=== PATIENT | female | born 1995 | race African-American/Black ===

== ENCOUNTER 2020-03-06 19:08 | Emergency (ER) | payer OTHER ==
[2020-03-06 19:17] VITALS: BP 131/79; PULSE 71; TEMP 97; BMI 30.5
[2020-03-06] MEDS ORDERED: KETOROLAC TROMETHAMINE 60 MG/2 ML VIAL IM ONE (20:16)
[2020-03-06] MEDS ORDERED: KETOROLAC TROMETHAMINE 60 MG/2 ML VIAL ONE (20:18)
== END 2020-03-06 20:11 | disposition home or self-care (01) ==
LOC: JERFT 19:08
PROC: 3E0233Z Introduction of Anti-inflammatory into Muscle, Percutaneous Approach (ICD-10-PCS; principal; 2020-03-06)
DX: S46.819A Strain of other muscles, fascia and tendons at shoulder and upper arm level, unspecified arm, initial encounter (principal); Z04.1 Encounter for examination and observation following transport accident
CPT/HCPCS: 99284-25

== ENCOUNTER 2020-03-07 16:40 | Emergency (ER) | payer OTHER ==
[2020-03-07 16:48] VITALS: BMI 30.5
[2020-03-07] MEDS ORDERED: CYCLOBENZAPRINE HCL 10 MG TABLET (FP) PO ONE (17:33)
[2020-03-07] MEDS ORDERED: ACETAMINOPHEN 500 MG TABLET (FP) PO ONE (17:33)
[2020-03-07] MEDS ORDERED: CYCLOBENZAPRINE HCL 10 MG TABLET (FP) ONE (17:37)
[2020-03-07] MEDS ORDERED: ACETAMINOPHEN 325 MG TABLET (FP) ONE (17:37)
[2020-03-07 18:51] VITALS: BP 134/74; PULSE 87; TEMP 99
== END 2020-03-07 19:09 | disposition short-term general hospital (02) ==
LOC: JER 16:40
DX: T74.21XA Adult sexual abuse, confirmed, initial encounter (principal)
CPT/HCPCS: 99285-25

== ENCOUNTER 2024-02-09 09:00 | Emergency (ER) | payer OTHER ==
[2024-02-09 09:13] VITALS: BP 112/74; PULSE 86; RESP 20; TEMP 98.1; BMI 23.5
[2024-02-09] MEDS ORDERED: CYCLOBENZAPRINE HCL 10 MG TABLET (FP) ONE (09:39)
[2024-02-09] MEDS ORDERED: KETOROLAC TROMETHAMINE 30 MG/1 ML VIAL ONE (09:39)
[2024-02-09] MEDS ORDERED: ACETAMINOPHEN 325 MG TABLET (FP) ONE (09:39)
[2024-02-09] MEDS: KETOROLAC TROMETHAMINE 30 MG/1 ML VIAL IM ONE (09:48)
[2024-02-09] MEDS: CYCLOBENZAPRINE HCL 10 MG TABLET (FP) PO ONE (09:48)
[2024-02-09] MEDS: ACETAMINOPHEN 500 MG TABLET (FP) PO ONE (09:48)
== END 2024-02-09 12:12 | disposition home or self-care (01) ==
LOC: JER 09:00
PROC: 3E0133Z Introduction of Anti-inflammatory into Subcutaneous Tissue, Percutaneous Approach (ICD-10-PCS; principal; 2024-02-09)
DX: S46.812A Strain of other muscles, fascia and tendons at shoulder and upper arm level, left arm, initial encounter (principal); X58.XXXA Exposure to other specified factors, initial encounter
CPT/HCPCS: 99284-25